=== PATIENT | female | born 1950 | race African-American/Black ===

== ENCOUNTER 2018-07-22 06:28 | Inpatient (IN) ==
[2018-07-22 07:09] LABS: Basophils % 0.4 % (0.0-0.8); Eosinophils # 0.1 10*3/uL (0.0-0.87); Eosinophils % 0.9 % (0.00-10.9); Hematocrit 39.6 VOL% (35.7-47.0); Hemoglobin 13.1 GM/DL (12.0-16.0); Immature Granulocytes % 0.6 %; Immature Granulocytes Absolute 0.05 #; Lymphocytes # 1.8 10*3/uL (1.4-4.0); Lymphocytes % 23.8 % (21.3-54.2); Mean Corpuscular HGB Conc 33.1 GM/DL (32-36); Mean Corpuscular Hemoglobin 29 PG (27-34); Mean Corpuscular Volume 86.7 FL (87-102); Mean Platelet Volume 9.2 FL (9.6-12.0); Monocytes # 0.6 10*3/uL (0.11-0.8); Monocytes % 7.1 % (1.7-12.7); Neutrophils # 5.2 10*3/uL (1.4-7.4); Neutrophils % 67.2 % (38.7-73.9); Platelet Count 364 T/CUMM (130-400); Red Blood Count 4.57 MC/CUMM (3.8-5.5); Red Cell Distribution Width 16.5 % (9.3-17.3); White Blood Count 7.7 T/CUMM (4-12)
[2018-07-22 07:36] LABS: Albumin 3.5 G/DL (3.4-5.0); Bilirubin,Total 0.9 MG/DL (0.2-1.0); Calcium 10.5 MG/DL (8.5-10.1); Potassium 3.7 MMOL/L (3.5-5.1); Total Protein 7.7 G/DL (6.4-8.3)
[2018-07-22] MEDS ORDERED: ceFAZolin 2,000 MG in PREMIX 1 EACH IV ONE (08:00)
[2018-07-22] MEDS ORDERED: ceFAZolin 1,000 MG VIAL ONE (08:03)
[2018-07-22] MEDS ORDERED: ALBUTEROL 2.5 MG/3 ML NEB RESP TX ONE (08:28)
[2018-07-22] MEDS ORDERED: FAMOTIDINE 20 MG TABLET PO ONE (08:28)
[2018-07-22] MEDS ORDERED: DIAZEPAM 2 MG TABLET PO ONE (08:28)
[2018-07-22] MEDS ORDERED: DIAZEPAM 2 MG TABLET ONE (08:33)
[2018-07-22] MEDS ORDERED: FAMOTIDINE 20 MG TABLET ONE (08:33)
[2018-07-22] MEDS ORDERED: TISSUE ADHESIVE 1 EACH APPLICATOR TOP ONE (08:43)
[2018-07-22] MEDS ORDERED: BUPIVACAINE MPF 0.25% /EPI 30 ML VIAL ONE (08:43)
[2018-07-22] MEDS ORDERED: LIDOCAINE 1%/EPI INJ 20 ML VIAL ONE (08:44)
[2018-07-22] MEDS: LACTATED RINGERS 1,000 ML IV SCH ×4 (09:26→18:04)
[2018-07-22] MEDS ORDERED: PROPOFOL 200 MG/20 ML VIAL IV ONE (12:23)
[2018-07-22] MEDS ORDERED: SEVOFLURANE 1 UNIT/15 MINUTE INH ONE (12:23)
[2018-07-22] MEDS ORDERED: MIDAZOLAM 2 MG/2 ML VIAL ONE (12:23)
[2018-07-22] MEDS ORDERED: fentaNYL 100 MCG/2 ML VIAL ONE (12:23)
[2018-07-22] MEDS ORDERED: PHENYLEPHRINE 1 MG/10 ML SYRINGE IV ONE (12:24)
[2018-07-22] MEDS ORDERED: LIDOCAINE 1% 20 ML VIAL ONE (12:24)
[2018-07-22] MEDS ORDERED: ONDANSETRON 4 MG/2 ML VIAL IV PRN ×2 (12:24→12:57)
[2018-07-22] MEDS ORDERED: ROCURONIUM 100 MG/10 ML VIAL IV ONE (12:24)
[2018-07-22] MEDS ORDERED: NEOSTIGMINE 10 MG/10 ML VIAL ONE (12:24)
[2018-07-22] MEDS ORDERED: ONDANSETRON 4 MG/2 ML VIAL ONE (12:24)
[2018-07-22] MEDS ORDERED: LABETALOL 100 MG/20 ML VIAL IV ONE (12:24)
[2018-07-22] MEDS ORDERED: ePHEDrine 50 MG/ML AMP ONE (12:24)
[2018-07-22] MEDS ORDERED: LACTATED RINGERS 2,000 ML IV ONE (12:24)
[2018-07-22] MEDS ORDERED: GLYCOPYRROLATE 0.4 MG/2 ML VIAL ONE (12:24)
[2018-07-22] MEDS: HYDROmorphone 2 MG/1 ML VIAL IV PRN ×3 (12:25→19:33)
[2018-07-22] MEDS ORDERED: NALOXONE 0.4 MG/ML VIAL IV PRN (12:37)
[2018-07-22] MEDS ORDERED: BISACODYL 10 MG SUPP RECTAL PRN (12:57)
[2018-07-22] MEDS ORDERED: BENZOCAINE/MENTHOL LOZENGE 18/BOX PO PRN (12:57)
[2018-07-22] MEDS ORDERED: PNEUMOCOCCAL VACCINE (13 VALENT) 0.5 ML SYRINGE IM ONE (13:33)
[2018-07-22] MEDS ORDERED: HYDROmorphone PCA 30 MG/30 ML SYRINGE IV SCH (14:00)
[2018-07-22 14:13] LABS: Apearance,Urine CLEAR (Clear); Bilirubin,Urine Negative (Negative); Blood, Urine Negative (Negative); Glucose,Urine (UA) Negative (Negative); Ketones,Urine Negative (Negative); Nitrite,Urine Negative (Negative); Protein,Urine Negative; RBC,Urine 2 /HPF (0-4); Squamous Epithelial Cell,Urine Occasional /HPF (0-10); Urine Color Yellow (Yellow); Urine Urobilinogen < 2.0 EU/DL (0.2-1.0); WBC,Urine 2 /HPF (0-6)
[2018-07-23] MEDS: HYDROmorphone 2 MG/1 ML VIAL IV PRN (03:46)
[2018-07-23] MEDS: LACTATED RINGERS 1,000 ML IV SCH ×2 (03:47→04:53)
[2018-07-23 06:32] LABS: Basophils % 0.2 % (0.0-0.8); Eosinophils % 0.1 % (0.00-10.9); Hematocrit 30.6 VOL% (35.7-47.0); Hemoglobin 9.9 GM/DL (12.0-16.0); Immature Granulocytes % 0.2 %; Immature Granulocytes Absolute 0.02 #; Lymphocytes % 10.9 % (21.3-54.2); Mean Corpuscular HGB Conc 32.4 GM/DL (32-36); Mean Corpuscular Hemoglobin 29 PG (27-34); Mean Corpuscular Volume 88.7 FL (87-102); Mean Platelet Volume 9.5 FL (9.6-12.0); Monocytes # 0.5 10*3/uL (0.11-0.8); Monocytes % 4.8 % (1.7-12.7); Neutrophils % 83.8 % (38.7-73.9); Platelet Count 266 T/CUMM (130-400); Red Blood Count 3.45 MC/CUMM (3.8-5.5); Red Cell Distribution Width 16.6 % (9.3-17.3); White Blood Count 9.5 T/CUMM (4-12)
[2018-07-23 07:04] LABS: Calcium 8.2 MG/DL (8.5-10.1); Osmolality,Calculated 285.1 MOS/KG (273-304); Potassium 3.9 MMOL/L (3.5-5.1)
[2018-07-23] MEDS: GABAPENTIN 600 MG TABLET PO SCH ×2 (09:30→20:58)
[2018-07-23] MEDS: LISINOPRIL/HCTZ 20-12.5 MG TABLET PO SCH (09:31)
[2018-07-23] MEDS: LEVOTHYROXINE 88 MCG TABLET PO SCH (09:31)
[2018-07-23] MEDS: POTASSIUM CHLORIDE 8 MEQ CAPSULE PO SCH ×2 (09:31→09:32)
[2018-07-23] MEDS ORDERED: GLUCAGON 1 MG VIAL IM PRN (09:47)
[2018-07-23] MEDS ORDERED: DEXTROSE 50% 25 GM/50 ML VIAL IV PRN (09:47)
[2018-07-23] MEDS: FAMOTIDINE 20 MG TABLET PO SCH (10:26)
[2018-07-23] MEDS: INSULIN REGULAR 100 UNIT/ML SUBCUT SCH ×2 (12:03→17:26)
[2018-07-23] MEDS: MAGNESIUM HYDROXIDE SUSP 30 ML UDCUP PO PRN (15:28)
[2018-07-23] MEDS: DOCUSATE SODIUM 100 MG CAPSULE PO PRN (20:58)
[2018-07-23] MEDS: IBUPROFEN 800 MG TABLET PO PRN (23:33)
[2018-07-24] MEDS ORDERED: GLUCAGON 1 MG VIAL IM PRN (07:39)
[2018-07-24] MEDS: DOCUSATE SODIUM 100 MG CAPSULE PO PRN ×2 (10:00→20:48)
[2018-07-24] MEDS: FAMOTIDINE 20 MG TABLET PO SCH (10:00)
[2018-07-24] MEDS: POTASSIUM CHLORIDE 8 MEQ CAPSULE PO SCH (10:00)
[2018-07-24] MEDS: LEVOTHYROXINE 88 MCG TABLET PO SCH (10:00)
[2018-07-24] MEDS: GABAPENTIN 600 MG TABLET PO SCH ×2 (10:00→20:48)
[2018-07-24] MEDS: LISINOPRIL/HCTZ 20-12.5 MG TABLET PO SCH (10:00)
[2018-07-24] MEDS: MAGNESIUM HYDROXIDE SUSP 30 ML UDCUP PO PRN (10:00)
[2018-07-24] MEDS: IBUPROFEN 800 MG TABLET PO PRN ×2 (10:03→22:15)
[2018-07-24] MEDS: SIMETHICONE CHEW 80 MG TABLET PO PRN (20:48)
[2018-07-25 07:21] VITALS: BP 124/67
[2018-07-25] MEDS ORDERED: FUROSEMIDE 20 MG TABLET PO ONE (07:39)
[2018-07-25] MEDS: MAGNESIUM HYDROXIDE SUSP 30 ML UDCUP PO PRN (09:06)
[2018-07-25] MEDS: DOCUSATE SODIUM 100 MG CAPSULE PO PRN (09:06)
[2018-07-25] MEDS: IBUPROFEN 800 MG TABLET PO PRN (09:06)
[2018-07-25] MEDS: GABAPENTIN 600 MG TABLET PO SCH (09:07)
[2018-07-25] MEDS: SIMETHICONE CHEW 80 MG TABLET PO PRN (09:07)
[2018-07-25] MEDS: FAMOTIDINE 20 MG TABLET PO SCH (09:07)
[2018-07-25] MEDS: LISINOPRIL/HCTZ 20-12.5 MG TABLET PO SCH (09:07)
[2018-07-25] MEDS: LEVOTHYROXINE 88 MCG TABLET PO SCH (09:08)
[2018-07-25] MEDS: POTASSIUM CHLORIDE 8 MEQ CAPSULE PO SCH (09:08)
[2018-07-25] MEDS ORDERED: INFLUENZA VIRUS VACCINE 0.5 ML SYRINGE IM ONE (10:16)
== END 2018-07-25 12:50 | disposition home or self-care (01) | DRG 743 ==
LOC: N.OR 06:28 → N.SDSINP 06:30 → N.OB 12:30
PROVIDERS: ADMIT Obstetrics & Gynecology; ATTEND Obstetrics & Gynecology